=== PATIENT | female | born 1985 | race Caucasian/White ===

== ENCOUNTER 2024-10-08 05:30 | Emergency (ER) | payer BC ==
[~2024-10-08] VITALS: Ht 172.7 cm; Wt 114.7 kg
--- NOTE | 2024-10-08 06:36 | ED.PDOC ---
Musculoskeletal HPI Comments 39 y.o female presents to the ED for a chief complaint of right knee pain that started one month ago. Patient reports history of right knee injury, had X rays done at an urgent care a couple days ago which resulted normal but states pain has worsened, described as a throbbing stabbing sensation. Patient reports no recent injury, falls, or redness. Patient has mild swelling with no fever, chills, or SOB. Patient has been taking Ibuprofen 800mg with no pain relief. Chief Complaint: Lower Extremity Time Seen by MD: 06:18 Reviewed Notes: Nurses Notes, Medications, Allergies Information Source: Patient Mode of Arrival: Ambulatory Location: Right Extremity Location: Knee Timing: Months (1) Severity: Moderate Able to Move Extremity: Yes Bear Weight: Limited Pain: Moderate Mechanism: None Circumstances: Spontaneous Onset of Symptoms: Spontaneous Symptoms: Swelling, Pain DVT Risk Factors: NONE Associated signs and symptoms: Knee pain Past Medical History PAST MEDICAL HISTORY: Denies Past Medical History (Other): right knee injury Surgical History: Denies all surgeries ROLLER REPAIRER History: No Pertinent ROLLER REPAIRER History Family History Family History: Reviewed,noncontributory to illness, No family hx of Cancer, No family hx of DM, No family hx of Heart zohaib, No family hx of HTN, No family hx ofKidney zohaib, No family hx of Liver zohaib, No family hx of Lung zohaib, No family hx of Stroke Social History Smoker: Non-Smoker Alcohol: Denies ETOH Use Drugs: Denies Drug Use Lives In: Home Constitutional: denies: chills, diaphoresis, fatigue, fever, malaise, sweats, weakness, others EENTM: denies: blurred vision, double vision, ear bleeding, ear discharge, ear drainage, ear pain, ear ringing, eye pain, eye redness, hearing loss, mouth pain, mouth swelling, nasal discharge, nose bleeding, nose congestion, nose pain, photophobia, tearing, throat pain, throat swelling, voice changes, others Respiratory: denies: cough, hemoptysis, orthopnea, SOB at rest, shortness of breath, SOB with excertion, stridor, wheezing, others Cardiovascular: denies: chest pain, dizzy spells, diaphoresis, Dyspnea on exertion, edema, irregular heart beat, left arm pain, lightheadedness, palpitations, PND, syncope, others Gastrointestinal: denies: abdomen distended, abdominal pain, blood streaked bowels, constipated, diarrhea, dysphagia, difficulty swallowing, hematemesis, melena, nausea, poor appetite, poor fluid intake, rectal bleeding, rectal pain, vomiting, others Genitourinary: denies: abnormal vagina bleeding, burning, dyspareunia, dysuria, flank pain, frequency, hematuria, incontinence, pain, , vagina discharge, urgency, others Neurological: denies: dizziness, fainting, headache, left sided numbness, left sided weakness, numbness, paresthesia, pre-existing deficit, right sided numbness, right sided weakness, seizure, speech problems, tingling, tremors, weakness, others Musculoskeletal: reports: others (right knee pain ); denies: back pain, gout, joint pain, joint swelling, muscle pain, muscle stiffness, neck pain Integumetry: denies: bruises, change in color, change in hair/nails, dryness, laceration, lesions, lumps, rash, wounds, others Allergic/Immunocompromised: denies: Difficulty Healing, Frequent Infections, Hives, Itching, others Hematologic/Lymphatic: denies: anemia, blood clots, easy bleeding, easy bruising, swollen glands, others Endocrine: denies: excessive hunger, excessive sweating, excessive thirst, excessive urination, flushing, intolerance to cold, intolerance to heat, unexplained weight gain, unexplained weight loss, others Psychiatric: denies: anxiety, bipolar disorder, depression, hopeless, panic di sorder, schizophrenia, sleepless, suicidal, others All Other Systems: Reviewed and Negative Physical Exam General Appearance: Moderate Distress HEENT: Normal ENT Inspection, Pharynx Normal, TMs Normal Neck: Full Range of Motion, Non-Tender, Normal, Normal Inspection Respiratory: Chest Non-Tender, Lungs Clear, No Accessory Muscle Use, No Respiratory Distress, Normal Breath Sounds Cardiovascular: No Edema, No JVD, No Murmur, No Gallop, Normal Peripheral Pulses, Regular Rate/Rhythm Breast Exam: Deferred Gastrointestinal: No Organomegaly, Non Tender, No Pulsatile Mass, Normal Bowel Sounds, Soft Genitalia: Deferred Pelvic: Deferred Rectal: Deferred Extremities: No calf tenderness, Normal capillary refill, Normal inspection, Normal range of motion, Non-tender, No pedal edema Musculoskeletal : Apperance: Normal 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 Was a procedure done?: No Differential Diagnosis EXT Differential Diagnosis: Fracture, Sprain, Dislocation, Gout, Contusion, Strain, Arthritis X-Ray, Labs, Meds, VS Vital Signs Date Time Temp Pulse Resp B/P (MAP) Pulse Ox O2 Delivery O2 Flow Rate FiO2 10/08/24 06:59 75 14 98 Room Air* 0 21 10/08/24 06:58 98.7 75 14 109/71 (84) 98 98.7 10/08/24 06:00 98.3 83 16 122/71 (88) 98 98.3 Current Medications Medications (Trade) Dose Ordered Sig/Eri Route Start Time Stop Time Status Last Admin Ketorolac Tromethamine (Toradol Injection) 60 mg ONCE ONCE IM 10/08/24 06:45 10/08/24 06:46 DC 10/08/24 06:58 Patient alert. Complaining of right knee pain. Has been a month since she had this pain. Vitals stable. Answering questions. Ambulating. Placed in Cj wrap. Was given Toradol. Was given prescription of [place]. Explained to the patient that she will need to take it at night. Was told to follow up with her primary care physician. Was told to come back if there is any problem. Time of 1ST Reevaluation: 06:36 Reevaluation 1ST: Unchanged Patient Education/Counseling: Diagnosis, Treatment, Prognosis Family Education/Counseling: No Family Present Departure 1 Departure Time of Disposition: 08:11 Impression: Primary Impression: Muscle strain Additional Impression: Degenerative joint disease of knee, right Qualified Codes: M17.11 - Unilateral primary osteoarthritis, right knee Disposition: 01 HOME / SELF CARE / HOMELESS Condition: Good e-Prescriptions Hydrocodone-Acetaminophen (Hydrocodone Bitartrate/AC 5-325 mg) 1 Tab Tab 1 TAB PO DAILY for 5 Days, #5 TAB Prov: DANNY SAMANIEGO MD 10/08/24 Discharged With: Self Critical Care Note Critical Care Time?: No Stability Stability form required: No I personally scribed for DANNY SAMANIEGO MD ([email or web address]) on 10/08/24 at 06:36. Electronically submitted by Amy Rivera ([facility]). DANNY SAMANIEGO MD Oct 08, 2024 06:36
[2024-10-08 06:58] VITALS: BP 109/71; TEMP 98.7
[2024-10-08] MEDS: KETOROLAC TROMETH 60MG/2ML VIAL IM ONE (06:58)
[2024-10-08 06:59] VITALS: PULSE 75; RESP 14; O2SAT 98
[2024-10-08] MEDS ORDERED: HYDR-4902 PO (08:12)
== END 2024-10-08 08:20 | disposition home or self-care (01) ==
LOC: ER 05:35
DX: S76.911A Strain of unspecified muscles, fascia and tendons at thigh level, right thigh, initial encounter (principal); M17.11 Unilateral primary osteoarthritis, right knee; X58.XXXA Exposure to other specified factors, initial encounter; Y93.89 Activity, other specified; Y92.89 Other specified places as the place of occurrence of the external cause; Y99.8 Other external cause status
CPT/HCPCS: 96372; 99283; J1885

== ENCOUNTER 2025-01-14 17:01 | Emergency (ER) | payer BC ==
[~2025-01-14] VITALS: Ht 172.7 cm; Wt 118.7 kg
[~2025-01-14 17:01] MED LIST: HYDR-4902 PO
--- NOTE | 2025-01-14 18:56 | DVH ---
TRANSABDOMINAL PELVIC ULTRASOUND CLINICAL HISTORY: RLQ PAIN TECHNIQUE: Multiple grayscale ultrasound images were obtained of the pelvis via transabdominal appro ach. Limited color Doppler and spectral Doppler acquisitions were also obtained. COMPARISON: None FINDINGS: Uterus: Prior hysterectomy Right adnexa: right ovary 4.2 x 3.2 x 3.3 cm. Normal arterial blood flow in the ovary. No right adnex al mass seen. Simple cyst in the right ovary measures 2.7 cm. Left adnexa: prior left oophorectomy. No left adnexal mass seen. Other: None IMPRESSION: 1. Prior hysterectomy and left oophorectomy. 2. Simple right ovarian cyst.
[2025-01-14 18:59] LABS: Hematocrit 41.8 % (36.0-46.0); Hemoglobin 14.0 g/dL (12.2-16.2); Mean Corpuscular Hemoglobin 31.1 pg (28.0-32.0); Mean Corpuscular Volume 92.8 fL (80.0-100.0); Nucleated Red Blood Cells % 0.1 %
--- NOTE | 2025-01-14 19:01 | ED.PDOC ---
GI ASSESSMENT HPI Comments HPI: 39-year-old female presents to the ED with a chief complaint of abdominal pain onset one today (01/14/25) around 10:00. Patient has been experiencing RLQ pain since 10:00 as well as nausea, pain is worsening. She describes the pain as sharp and intermittent. She has experienced similar pain when she was diagnosed with ovarian cysts. Denies any fever, chills, vomiting, diarrhea, constipation, dizziness, chest pain, fevers, chills, dysuria, hematuria, hematemesis, melena, blood in stool. No other symptoms or modifying factors present at this time. Initial Vitals BP: 155/92 HR: 101 RR: 22 O2: 100% Temp: 98.2 F Past Medical History: endometriosis Past Surgical History: partial hysterectomy Social History: Denies ETOH, smoking, and drug use. Medications: Denies Allergies: NKDA SAMMY: HPI: Poor Historian. Past Medical History: Large right ovarian cyst Past Surgical History: REVIEW OF SYSTEMS: CONSTITUTIONAL: Denies acute: fever, diaphoresis, chills, generalized weakness. HEAD: Denies acute: headache, photophobia Eyes: Denies acute: Double vision, vision loss, eye pain, eye discharge. EARS: Denies acute: tinnitus, hearing loss, ear discharge, ear pain, THROAT: Denies acute: sore throat, swelling, difficulty swallowing , pain with swallowing, change in voice. NECK: Denies acute: neck pain, neck swelling, stiff neck. HEART: Denies acute : chest pain, palpitations, LUNGS: Denies acute: SOB, wheezing, cough, hemoptysis ABDOMEN: Denies acute: Nausea, Vomiting, diarrhea, melena , hematemesis, hematochezia SKIN: Denies acute: rash, redness, lesions, itchiness. EXTREMITIES: Denies acute: calf pain, numbness, tingling, weakness, denies pain in extremity. Denies acute: Low back pain. Neuro: Denies acute: focal neurological deficit, motor or sensory focal neurological deficit, tremors, seizure like activity, confusion, dizziness, change in mental status, loss of bowel or bladder function, cauda equina like symptoms. : Denies acute: dysuria, hematuria, flank pain, increase in urinary frequency. PSYCH: Denies acute: hallucination, suicidal ideation, homicidal ideation. FEMALE: Denies acute: abnormal vaginal bleeding, foul odor, unusual discharge. PHYSICAL EXAM: General: ----moderate----acute distress, awake and alert. Head: normocephalic, atraumatic. Neck: supple, trachea is midline, no swelling. Throat: Normal phonation. Eyes:, no erythema, no purulent discharge, no proptosis, no icterus. Heart: regular rate, regular rhythm, no significant murmur appreciated. Lungs: no apparent respiratory distress, Able to speak in full sentences. No wheezing, no rhonchi, no crackles. No stridors Clear to auscultation bilaterally. Abdomen: Right lower quadrant tender to palpation, non distended, soft, no guarding, no rebound, + bowel sounds. Obese Neuro: Awake, Alert, oriented to name, self, situation, follows commands GCS=15. Speech is normal. Skin: no petechia, no purpura, no cyanosis, non-pale, not jaundice. Lower extremities: --no - Pitting edema no deformity, no focal swelling, no calf TTP. Makes eye contact. moves all four extremities. Face: no apparent facial droop. Ambulating in the ED independently. ED COURSE: DISCLAIMER: This medical document was created using an electronic medical record system with voice recognition software and computerized dictation system. Although this document has been carefully reviewed, there might still be some phonetic and typographical errors. Occasional wrong-word or "sound-alike" substitutions may have occurred due to the inherent limitations of voice recognition software. These areas are purely typographical due to imperfections of the software programs and do not reflect any compromise in the patient's medical care. Please read the chart carefully and recognize, using context, where these substitutions have occurred. Chief Complaint: Abdominal Pain Time Seen by MD: 18:40 Reviewed Notes: Medications, Allergies Allergies: Coded Allergies: No Known Drug Allergy (Verified Allergy, Unknown, 01/14/25) Home Meds Active Scripts Hydrocodone-Acetaminophen (Hydrocodone Bitartrate/AC 5-325 mg) 1 Tab Tab, 1 TAB PO DAILY for 5 Days, #5 TAB Prov:DANNY SAMANIEGO MD 10/08/24 Hydrocodone-Acetaminophen (Hydrocodone Bitartrate/AC 5-325 mg) 1 Tab Tab, 1 TAB PO DAILY for 5 Days, #5 TAB Prov:DANNY SAMANIEGO MD 10/08/24 Information Source: Patient Mode of Arrival: Ambulatory Timing: Hours Duration: Since onset Prehospital treatment: None Quality: Sharp Vomitus: None Severity: Moderate Recent: None Recent Hx of: None Pain Location: RLQ Modifying Factors: Nothing Associated sign and symptoms: Nausea, Abdominal Pain Past Medical History PAST MEDICAL HISTORY: Denies Surgical History: Hysterectomy 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 Was a procedure done?: No GI differential Dx Differential Diagnosis: Other (DDX include Diverticulitis, colitis, gastroenteritis, acute abdomen, SBO, enteritis, constipation, volvulus, appendicitis, Gallbladder disease, choledocolithiasis, ascending cholangitis, pancreatitis, intraAbdominal mass/neoplasm, hepatitis, UTI, pylonephritis, kidney stone, aneurysm, dissection, Inflammatory bowel disease, gastroparesis, ischemic bowel, ovarian torsion, ovarian cyst/mass, tubo-ovarian abscess, , ectopic , PID, STD.) X-Ray, Labs, Meds, VS Vital Signs Date Time Temp Pulse Resp B/P (MAP) Pulse Ox O2 Delivery O2 Flow Rate FiO2 01/14/25 22:20 98.9 70 20 134/74 (94) 99 98.9 01/14/25 20:35 98.7 67 18 120/77 (91) 98 98.7 01/14/25 17:02 98.2 101 22 155/92 100 98.2 Lab Test 01/14/25 19:06 01/14/25 18:37 Range/Units Urine Color Light-yellow Yellow Urine Clarity Clear Clear Urine pH 6.0 5.0-9.0 Urine Specific [place] 1.015 1.001-1.035 Urine Protein Negative Negative Urine Ketones Negative Negative Urine Blood Negative Negative /uL Urine Nitrite Negative Negative Urine Bilirubin Negative Negative Urine Urobilinogen Normal Negative mg/dL Urine Leukocyte Esterase Negative Negative /uL Urine RBC 2 0 - 4 /hpf Urine Microscopic WBC 2 0-5 /HPF Urine Squamous Epithelial Cells Few <5 /hpf Urine Bacteria None seen None Seen /hpf Urine Glucose Normal Normal mg/dL Urine Test Negative Negative White Blood Count 11.5 H 4.4-10.8 10^3/uL Red Blood Count 4.50 4.0-5.20 10^6/uL Hemoglobin 14.0 12.2-16.2 g/dL Hematocrit 41.8 36.0-46.0 % Mean Corpuscular Volume 92.8 80.0-100.0 fL Mean Corpuscular Hemoglobin 31.1 28.0-32.0 pg Mean Corpuscular Hemoglobin Concent 33.5 32.0-36.0 g/dL Red Cell Distribution Width 14.1 11.8-14.3 % Platelet Count 245 140-450 10^3/uL Mean Platelet Volume 9.1 6.9-10.8 fL Neutrophils (%) (Auto) 72.2 37.0-80.0 % Lymphocytes (%) (Auto) 17.9 10.0-50.0 % Monocytes (%) (Auto) 8.9 0.0-12.0 % Eosinophils (%) (Auto) 0.8 0.0-7.0 % Basophils (%) (Auto) 0.2 0.0-2.0 % Neutrophils # (Auto) 8.3 1.6-8.6 10 ^3/uL Lymphocytes # (Auto) 2.1 0.4-5.4 10 ^3/uL Monocytes # (Auto) 1.0 0-1.3 10 ^3/uL Eosinophils # (Auto) 0.1 0-0.8 10 ^3/uL Basophils # (Auto) 0 0-0.2 10 ^3/uL Nucleated Red Blood Cells 0.1 % Sodium Level 142 136-145 mmol/L Potassium Level 3.7 3.5-5.1 mmol/L Chloride Level 105 98-107 mmol/L Carbon Dioxide Level 28 20-31 mmol/L Anion Gap 9 5-15 Blood Urea Nitrogen 9 9-23 mg/dL Creatinine 0.76 0.550-1.02 mg/dL Glomerular Filtration Rate Calc 102 >90 mL/min BUN/Creatinine Ratio 11.8 10.0-20.0 Serum Glucose 88 74-106 mg/dL Calcium Level 9.7 8.7-10.4 mg/dL Total Bilirubin 0.4 0.2-1.0 mg/dL Aspartate Amino Transferase (AST) 22 13-40 U/L Alanine Aminotransferase (ALT) 22 7-40 U/L Alkaline Phosphatase 133 H 46-116 U/L Total Protein 7.2 5.7-8.2 g/dL Albumin 4.4 3.2-4.8 g/dL [place] [id number] Ph: [phone] DIAGNOSTIC IMAGING Diagnostic Imaging Report : [id number] Signed PATIENT: JADA CHRISTIANSON ACCT: [id number] UNIT: [id number] : 1985 LOC: ER ROOM / BED: / AGE / SEX: 39 / F ADM STATUS: REG ER SERVICE 19 ORDERING PHYSICIAN: KANU LAKE DO PROCEDURE(s): PELUS - PELVIC REASON: RLQ PAIN ORDER NUMBER(s): [id number], ACCESSION NUMBER(s): [id number] TRANSABDOMINAL PELVIC ULTRASOUND CLINICAL HISTORY: RLQ PAIN TECHNIQUE: Multiple grayscale ultrasound images were obtained of the pelvis via transabdominal approach. Limited color Doppler and spectral Doppler ac quisitions were also obtained. COMPARISON: None FINDINGS: Uterus: Prior hysterectomy Right adnexa: right ovary 4.2 x 3.2 x 3.3 cm. Normal arterial blood flow in the ovary. No right adnexal mass seen. Simple cyst in the right ovary measures 2.7 cm. Left adnexa: prior left oophorectomy. No left adnexal mass seen. Other: None IMPRESSION: 1. Prior hysterectomy and left oophorectomy. 2. Simple right ovarian cyst. ATED BY: TACOS ROY MD DICTATED DATE/TIME: 01/14/251853 SIGNED BY: TACOS ROY MD SIGNED DATE/TIME: 01/14/251853 CC: [address] [address] Ph: [phone] DIAGNOSTIC IMAGING Diagnostic Imaging Report : [id number] Signed PATIENT: JADA CHRISTIANSON ACCT: [id number] UNIT: [id number] : 1985 LOC: ER ROOM / BED: / AGE / SEX: 39 / F ADM STATUS: REG ER SERVICE 190 ORDERING PHYSICIAN: KANU LAKE DO PROCEDURE(s): ABPL - CT AB PEL WO CON-NO ORAL OR IV REASON: RLQ PAIN ORDER NUMBER(s): [id number], ACCESSION NUMBER(s): [id number] EXAM: CT CT AB PEL WO CON-NO ORAL OR IV INDICATION: RLQ PAIN TECHNIQUE: Volumetric multidetector CT images of the abdomen and pelvis were obtained without contrast. All CT scans at this facility use dose modulation, iterative reconstruction, and/or weight based dosing when appropriate to reduce radiation dose to as low as reasonably achievable. COMPARISON: US PELVIC on DOS: 01/14/25 FINDINGS: [LOWER CHEST]: The partially visualized lung bases are clear without a pleural effusion. The cardiac size is normal without pericardial effusion. [LIVER]: Normal hepatic size without suspicious focal lesion. [GALLBLADDER AND BILIARY TREE]: Cholelithiasis [SPLEEN]: Unremarkable. [PANCREAS]: Unremarkable. [ADRENAL GLANDS]: Unremarkable [KIDNEYS]: No hydronephrosis. No nephroureterolithiasis. [BLADDER]: Unremarkable for the degree distention. [REPRODUCTIVE ORGANS]: Hysterectomy. Right ovarian cysts measuring 3.7 cm [BOWEL/MESENTERY]: Stomach is normal. No CT evidence of bowel obstruction. normal appendix. [ASCITES]: Absent [LYMPHADENOPATHY]: No pathologically enlarged lymph nodes by CT size criteria [VASCULATURE]: No aneurysmal dilatation. [ABDOMINAL WALL]: Unremarkable. [MUSCULOSKELETAL]: No acute fracture or aggressive focal osseous lesion. Multifocal degenerative change of the visualized spine. IMPRESSION: 1. No CT evidence of an acute abdominal/pelvic process. 2. Right ovarian cyst measuring 3.7 cm. 3. Mild stool burden within the ascending colon. No intraperitoneal ascites. No hydronephrosis. ATED BY: GARETT SHANKS MD DICTATED DATE/TIME: 01/14/252048 SIGNED BY: GARETT SHANKS MD SIGNED DATE/TIME: 01/14/252048 CC: Time of 1ST Reevaluation: 19:10 Reevaluation 1ST: Unchanged Patient Education/Counseling: Diagnosis, Treatment Family Education/Counseling: No Family Present Comments MDM: patient presented with the above HPI.--right lower quadrant abdominal pain----workup was initiated. patient was found with the above mentioned diagnosis. the following medications were ordered: please refer to order lists of meds and tests obtained by myself Dr. Lake. Patient ED course and VS have been stabilized. Patient has been reassessed in the ED and remained in a stable condition. Pertinent incidental findings were discussed with the patient and/or family. Patient/family voices understanding and is agreeable with plan. Patient has been observed in the ED adequate length of time to insure improvement/stability. Escalation of care considered: Consideration of escalation to observation or admission Patient was DISCHARGED home in a stable condition. All the reports of any imaging studies that were ordered by myself were reviewed by myself. Departure 1 Departure Time of Disposition: 21:51 Impression: Primary Impression: Right lower quadrant pain Additional Impression: Right ovarian cyst Disposition: 01 HOME / SELF CARE / HOMELESS Condition: Stable Additional Instructions: Additional instructions: Please read all instructions provided in this packet carefully. You MUST follow-up with your primary care/family doctor in 1 to 2 days. If you are unable to see your primary care/family doctor, please return to our emergency room for re-assessment and re-evaluation in 1 to 2 days. Return to the emergency room here in our facility or to the nearest ER [facility] if your symptoms change or worsen. CONSULTATIONS: you MUST Follow-up for consultation as soon as possible with: -[facility] doctor in 1-2 days. Please call for appointment You MUST call the consultants office yourself to make an appointment. You may need to arrange that through your insurance and/or your primary/family doctor. If you are unable to see the windows consultant in 1 to 2 days, you must return to our emergency room (or any other ER of your choice) for re-assessment and re- evaluation. Adequate fluid hydration. Although you have been discharged from the Emergency Department, this does not mean that you have a "clean bill of health". No definitive diagnosis for your symptoms has been made today. It is possible that you are in the process of developing a serious illness. This is why you must return to the ED without fail if any new or worsening symptoms develop. Absolute pelvic rest Below is a copy of your radiological report for follow up: [place] [address] Ph: [phone] DIAGNOSTIC IMAGING Diagnostic Imaging Report : [id number] Signed PATIENT: JADA CHRISTIANSON ACCT: [id number] UNIT: [id number] : 1985 LOC: ER ROOM / BED: / AGE / SEX: 39 / F ADM STATUS: REG ER SERVICE 19 ORDERING PHYSICIAN: KANU LAKE DO PROCEDURE(s): PELUS - PELVIC REASON: RLQ PAIN ORDER NUMBER(s): [id number], ACCESSION NUMBER(s): [id number] TRANSABDOMINAL PELVIC ULTRASOUND CLINICAL HISTORY: RLQ PAIN TECHNIQUE: Multiple grayscale ultrasound images were obtained of the pelvis via transabdominal approach. Limited color Doppler and spectral Doppler acquisitions were also obtained. COMPARISON: None FINDINGS: Uterus: Prior hysterectomy Right adnexa: right ovary 4.2 x 3.2 x 3.3 cm. Normal arterial blood flow in the ovary. No right adnexal mass seen. Simple cyst in the right ovary measures 2.7 cm. Left adnexa: prior left oophorectomy. No left adnexal mass seen. Other: None IMPRESSION: 1. Prior hysterectomy and left oophorectomy. 2. Simple right ovarian cyst. ATED BY: TACOS ROY MD DICTATED DATE/TIME: 01/14/251853 SIGNED BY: TACOS ROY MD SIGNED DATE/TIME: 01/14/251853 CC: [address] [address] Ph: [phone] DIAGNOSTIC IMAGING Diagnostic Imaging Report : [id number] Signed PATIENT: JADA CHRISTIANSON ACCT: [id number] UNIT: [id number] : 1985 LOC: ER ROOM / BED: / AGE / SEX: 39 / F ADM STATUS: REG ER SERVICE 03 ORDERING PHYSICIAN: KANU LAKE DO PROCEDURE(s): ABPL - CT AB PEL WO CON-NO ORAL OR IV REASON: RLQ PAIN ORDER NUMBER(s): [id number], ACCESSION NUMBER(s): [id number] EXAM: CT CT AB PEL WO CON-NO ORAL OR IV INDICATION: RLQ PAIN TECHNIQUE: Volumetric multidetector CT images of the abdomen and pelvis were obtained without contrast. All CT scans at this facility use dose modulation, iterative reconstruction, and/or weight based dosing when appropriate to reduce radiation dose to as low as reasonably achievable. COMPARISON: US PELVIC on DOS: 01/14/25 FINDINGS: [LOWER CHEST]: The partially visualized lung bases are clear without a pleural effusion. The cardiac size is normal without pericardial effusion. [LIVER]: Normal hepatic size without suspicious focal lesion. [GALLBLADDER AND BILIARY TREE]: Cholelithiasis [SPLEEN]: Unremarkable. [PANCREAS]: Unremarkable. [ADRENAL GLANDS]: Unremarkable [KIDNEYS]: No hydronephrosis. No nephroureterolithiasis. [BLADDER]: Unremarkable for the degree distention. [REPRODUCTIVE ORGANS]: Hysterectomy. Right ovarian cysts measuring 3.7 cm [BOWEL/MESENTERY]: Stomach is normal. No CT evidence of bowel obstruction. normal appendix. [ASCITES]: Absent [LYMPHADENOPATHY]: No pathologically enlarged lymph nodes by CT size criteria [VASCULATURE]: No aneurysmal dilatation. [ABDOMINAL WALL]: Unremarkable. [MUSCULOSKELETAL]: No acute fracture or aggressive focal osseous lesion. Multifocal degenerative change of the visualized spine. IMPRESSION: 1. No CT evidence of an acute abdominal/pelvic process. 2. Right ovarian cyst measuring 3.7 cm. 3. Mild stool burden within the ascending colon. No intraperitoneal ascites. No hydronephrosis. ATED BY: GARETT SHANKS MD DICTATED DATE/TIME: 01/14/252048 SIGNED BY: GARETT SHANKS MD SIGNED DATE/TIME: 01/14/252048 CC: Discharged With: Self Critical Care Note Critical Care Time?: No I personally scribed for KANU LAKE DO ([email or web address]) on 01/14/25 at 19:01. Electronically submitted by Maria L Palacio ([email or web address]). I personally scribed for KANU LAKE DO ([email or web address]) on 01/14/25 at 19:02. Electronically submitted by Maria L Palacio ([email or web address]). I personally scribed for KANU LAKE DO ([email or web address]) on 01/14/25 at 21:01. E lectronically submitted by Maria L Palacio ([email or web address]). KANU LAKE DO Jan 14, 2025 19:01
[2025-01-14 19:22] LABS: Alanine Aminotransferase 22 U/L (7-40); Anion Gap 9 (5-15); BUN/Creatinine Ratio 11.8 (10.0-20.0); Calcium 9.7 mg/dL (8.7-10.4); Carbon Dioxide 28 mmol/L (20-31); Chloride 105 mmol/L (98-107); Glucose 88 mg/dL (74-106); Potassium 3.7 mmol/L (3.5-5.1); Sodium 142 mmol/L (136-145); Total Protein 7.2 g/dL (5.7-8.2)
[2025-01-14 19:23] LABS: Albumin 4.4 g/dL (3.2-4.8); Bilirubin, Total 0.4 mg/dL (0.2-1.0)
[2025-01-14 19:24] LABS: Alkaline Phosphatase 133 U/L (46-116); Blood Urea Nitrogen 9 mg/dL (9-23)
[2025-01-14 20:19] LABS: Urine Protein, UAD Negative (Negative)
--- NOTE | 2025-01-14 20:52 | DVH ---
EXAM: CT CT AB PEL WO CON-NO ORAL OR IV INDICATION: RLQ PAIN TECHNIQUE: Volumetric multidetector CT images of the abdomen and pelvis were obtained without contras t. All CT scans at this facility use dose modulation, iterative reconstruction, and/or weight based d osing when appropriate to reduce radiation dose to as low as reasonably achievable. COMPARISON: US PELVIC on DOS: 01/14/25 FINDINGS: [LOWER CHEST]: The partially visualized lung bases are clear without a pleural effusion. The cardiac size is normal without pericardial effusion. [LIVER]: Normal hepatic size without suspicious focal lesion. [GALLBLADDER AND BILIARY TREE]: Cholelithiasis [SPLEEN]: Unremarkable. [PANCREAS]: Unremarkable. [ADRENAL GLANDS]: Unremarkable [KIDNEYS]: No hydronephrosis. No nephroureterolithiasis. [BLADDER]: Unremarkable for the degree distention. [REPRODUCTIVE ORGANS]: Hysterectomy. Right ovarian cysts measuring 3.7 cm [BOWEL/MESENTERY]: Stomach is normal. No CT evidence of bowel obstruction. normal appendix. [ASCITES]: Absent [LYMPHADENOPATHY]: No pathologically enlarged lymph nodes by CT size criteria [VASCULATURE]: No aneurysmal dilatation. [ABDOMINAL WALL]: Unremarkable. [MUSCULOSKELETAL]: No acute fracture or aggressive focal osseous lesion. Multifocal degenerative dubose ge of the visualized spine. IMPRESSION: 1. No CT evidence of an acute abdominal/pelvic process. 2. Right ovarian cyst measuring 3.7 cm. 3. Mild stool burden within the ascending colon. No intraperitoneal ascites. No hydronephrosis.
[2025-01-14 22:20] VITALS: BP 134/74; PULSE 70; RESP 20; TEMP 98.9; O2SAT 99
[2025-01-14] MEDS: fentaNYL CITRATE 100 MCG/2 ML VL IV ONE (22:26)
[2025-01-14] MEDS: KETOROLAC TROMETH 30 MG/ML 1ML VIAL IV ONE (22:32)
[2025-01-14] MEDS: HYDROcodone-ACET 5/325MG TAB PO ONE (22:33)
[2025-01-14] MEDS: KETOROLAC TROMETH 60MG/2ML VIAL IM ONE (22:33)
== END 2025-01-14 22:39 | disposition home or self-care (01) ==
LOC: ER 17:05
DX: N83.291 Other ovarian cyst, right side (principal); R10.31 Right lower quadrant pain; Z90.711 Acquired absence of uterus with remaining cervical stump; Z79.899 Other long term (current) drug therapy
CPT/HCPCS: 36415; 74176; 76856; 80053; 81001; 81025; 85025; 96372; 99285; J1885

== ENCOUNTER 2025-01-29 09:48 | Outpatient (CLI) | payer BC ==
[2025-01-29 11:36] LABS: Iron 117.0 ug/dL (50-170)
[2025-01-29 11:38] LABS: Alanine Aminotransferase 31 U/L (7-40); Albumin 4.5 g/dL (3.2-4.8); Alkaline Phosphatase 125 U/L (46-116); Anion Gap 9 (5-15); BUN/Creatinine Ratio 9.7 (10.0-20.0); Bilirubin, Total 0.6 mg/dL (0.2-1.0); Blood Urea Nitrogen 7 mg/dL (9-23); Calcium 9.5 mg/dL (8.7-10.4); Carbon Dioxide 27 mmol/L (20-31); Chloride 105 mmol/L (98-107); Glucose 86 mg/dL (74-106); Potassium 3.9 mmol/L (3.5-5.1); Sodium 141 mmol/L (136-145); Total Protein 7.3 g/dL (5.7-8.2)
[2025-01-29 11:39] LABS: Total Iron Binding Capacity 338.0 ug/dL (250-425)
[2025-01-29 11:57] LABS: Follicle Stimulating Hormone 6.34 IU/L (SEE BELOW)
[2025-01-29 12:04] LABS: Cholesterol 190 mg/dL (< 200)
[2025-01-29 12:17] LABS: Triglycerides 81 mg/dL (< 150)
[2025-01-29 12:36] LABS: HDL Cholesterol 68 mg/dL (40-59)
[2025-01-29 13:03] LABS: Hematocrit 41.9 % (36.0-46.0); Hemoglobin 14.0 g/dL (12.2-16.2); Mean Corpuscular Hemoglobin 30.8 pg (28.0-32.0); Mean Corpuscular Volume 92.2 fL (80.0-100.0); Nucleated Red Blood Cells % 0.0 %
== END 2025-01-29 17:00 | disposition home or self-care (01) ==
LOC: LAB 09:48
PROVIDERS: ATTEND Family Medicine
DX: N83.201 Unspecified ovarian cyst, right side (principal); R42 Dizziness and giddiness; Z00.00 Encounter for general adult medical examination without abnormal findings; Z68.31 Body mass index [BMI] 31.0-31.9, adult
CPT/HCPCS: 36415; 80053; 80061; 82306; 82607; 82670; 82672; 83001; 83002; 83036; 83540; 83550; 84146; 84443; 85025; 85652

== ENCOUNTER 2025-03-04 09:09 | Outpatient (CLI) | payer BC ==
[2025-03-04 10:23] LABS: Iron 101.0 ug/dL (50-170)
[2025-03-04 10:26] LABS: Total Iron Binding Capacity 338.0 ug/dL (250-425)
[2025-03-04 10:31] LABS: Free T4 (Free Thyroxine) 1.03 ng/dL (0.89-1.76)
== END 2025-03-04 17:00 | disposition home or self-care (01) ==
LOC: LAB 09:09
PROVIDERS: ATTEND Family Medicine
DX: E05.90 Thyrotoxicosis, unspecified without thyrotoxic crisis or storm (principal)
CPT/HCPCS: 36415; 80198; 83036; 83540; 83550; 84439; 84443; 84480

== ENCOUNTER 2025-04-06 06:33 | Outpatient (CLI) | payer BC ==
[2025-04-06 07:20] LABS: Urine Budding Yeast MODERATE /hpf (None Seen); Urine Protein, UAD Negative (Negative)
== END 2025-04-06 17:00 | disposition home or self-care (01) ==
LOC: LAB 06:33
PROVIDERS: ATTEND Family Medicine
DX: N83.201 Unspecified ovarian cyst, right side (principal); R42 Dizziness and giddiness; Z00.00 Encounter for general adult medical examination without abnormal findings; Z68.31 Body mass index [BMI] 31.0-31.9, adult
CPT/HCPCS: 81001; 87086; 87088; 87186